=== PATIENT | female | born 1950 | race Caucasian/White ===

== ENCOUNTER 2018-07-14 06:21 | Inpatient (IN) | payer MEDICARE, OTHER ==
[2018-07-14] MEDS: LACTATED RINGER'S 1,000 ML IV* (06:00)
[2018-07-14] MEDS: SOD CHLORIDE 0.9% 1,000 ML IV ×3 (07:18→19:48)
[2018-07-14] MEDS ORDERED: BISACODYL 10 MG SUPP PR (07:30)
[2018-07-14] MEDS ORDERED: MAGNESIUM HYDROXIDE 30ML CUP PO (07:30)
[2018-07-14] MEDS ORDERED: BETHANECHOL 25 MG TAB PO (07:30)
[2018-07-14] MEDS ORDERED: NA PHOSPHATE/BIPHOS 133 ML ENEMA PR (07:30)
[2018-07-14] MEDS ORDERED: oxyCODONE 5 MG TAB PO (07:30)
[2018-07-14] MEDS ORDERED: NACL 0.9% 3 ML SYG IV (07:30)
[2018-07-14] MEDS ORDERED: SENNA/DOCUSATE NA (8.6MG/50MG) TAB PO (07:30)
[2018-07-14] MEDS ORDERED: FENTAnyl 50 MCG/ML VIAL (08:15)
[2018-07-14] MEDS: TRANEXAMIC ACID 1,000 MG in NS 100 ML PRE-OP X1 IVPB (08:15)
[2018-07-14] MEDS ORDERED: ETOMIDATE 20 MG INJ (08:15)
[2018-07-14] MEDS ORDERED: LIDOCAINE 2% (SDV) 5 ML INJ (08:15)
[2018-07-14] MEDS ORDERED: MIDAZOLAM 1 MG/ML 2 ML INJ (08:18)
[2018-07-14] MEDS: CEFAZOLIN 2 GM/50 ML (PMX) 50 ML IVPB (08:30)
[2018-07-14] MEDS ORDERED: hydrALAzine 20 MG INJ (08:35)
[2018-07-14] MEDS ORDERED: CEFAZOLIN 1 GM INJ (08:36)
[2018-07-14] MEDS ORDERED: DEXAMETHASONE 4 MG/ML 1 ML INJ (08:38)
[2018-07-14] MEDS ORDERED: ONDANSETRON 4 MG INJ (08:38)
[2018-07-14] MEDS ORDERED: PHENYLephrine (100 MCG/ML) 5ML SYG ×3 (08:42→10:17)
[2018-07-14] MEDS ORDERED: METOPROLOL 5 MG INJ (08:58)
[2018-07-14] MEDS: BACITRACIN 50000 UNITS INJ (09:03)
[2018-07-14] MEDS: POLYMYXIN B 500000 UNIT INJ (09:03)
[2018-07-14] MEDS: TRANEXAMIC ACID 1,000 MG in NS 100 ML INTRA-OP X1 IVPB (10:00)
[2018-07-14] MEDS ORDERED: EPHEDrine SULFATE 50 MG/5 ML SYG (10:12)
[2018-07-14] MEDS ORDERED: LABETALOL HCL 20MG INJ IV (10:30)
[2018-07-14] MEDS ORDERED: HYDROmorphONE 1 MG/5 ML IV SYRINGE IV (10:30)
[2018-07-14] MEDS ORDERED: hydrALAzine 20 MG INJ IV (10:30)
[2018-07-14] MEDS: EPHEDrine SULFATE 50 MG/5 ML SYG IV (10:41)
[2018-07-14] MEDS: ASPIRIN (EC) 325 MG TAB PO (10:42)
[2018-07-14] MEDS: CEFAZOLIN 1 GM/50 ML (PMX) 50 ML IVPB ×2 (10:42→16:02)
[2018-07-14] MEDS: DOCUSATE SODIUM 100 MG CAP PO (10:43)
[2018-07-14] MEDS: ONDANSETRON 4 MG INJ IV ×4 (10:43→22:37)
[2018-07-14] MEDS: HYDROmorphONE 1 MG/5 ML IV SYRINGE IV ×2 (10:57→11:37)
[2018-07-14] MEDS: NALOXONE (0.4 MG/ML) INJ IV (11:31)
[2018-07-14] MEDS: DIPHENHYDRAMINE 50 MG INJ IV (11:44)
[2018-07-14] MEDS: GABAPENTIN 100 MG CAP PO ×3 (13:00→21:18)
[2018-07-14] MEDS: oxyCODONE 5 MG TAB PO (19:41)
[2018-07-15] MEDS: CEFAZOLIN 1 GM/50 ML (PMX) 50 ML IVPB (00:40)
[2018-07-15] MEDS: oxyCODONE 5 MG TAB PO ×3 (00:41→14:26)
[2018-07-15] MEDS: ONDANSETRON 4 MG INJ IV (01:30)
[2018-07-15 05:03] LABS: ADD MAN DIFF? NO
[2018-07-15 05:06] LABS: WHITE BLOOD COUNT 16.6 10^3/ul (4.8-10.8)
[2018-07-15 05:06] LABS: ABNORMAL IP MESSAGE 1; BASOPHILS % 0.2 % (0.0-2.0); HEMATOCRIT 29.7 % (37.0-47.0); HEMOGLOBIN 9.6 g/dl (12.0-16.0); LYMPHOCYTES # 1.8 10^3/ul (0.8-2.9); LYMPHOCYTES % 10.7 % (15.0-51.0); MEAN CORPUSCULAR HEMOGLOBIN 31.6 pg (29.0-33.0); MEAN CORPUSCULAR HGB CONC 32.3 g/dl (32.0-37.0); MEAN CORPUSCULAR VOLUME 97.7 fl (82.0-101.0); MONOCYTE # 1.6 10^3/ul (0.3-0.9); MONOCYTES % 9.6 % (0.0-11.0); NEUTROPHIL # 13.1 10^3/ul (1.6-7.5); PLATELET COUNT 290 10^3/UL (140-415); RED BLOOD COUNT 3.04 10^6/ul (4.20-5.40); RED CELL DISTRIBUTION WIDTH 15.1 % (11.5-14.5)
[2018-07-15 05:08] LABS: POSITIVE DIFF @See below
[2018-07-15 05:44] LABS: ANION GAP 12 (5-13); BLOOD UREA NITROGEN 19 mg/dl (7-20); CARBON DIOXIDE 22 mmol/L (21-31); CHLORIDE 103 mmol/L (97-110); CREATININE 1.19 mg/dl (0.44-1.00); Estimated GFR 45 mL/min (>60); GLUCOSE 103 mg/dl (70-220); POTASSIUM 4.8 mmol/L (3.5-5.1); SODIUM 137 mmol/L (135-144)
[2018-07-15] MEDS: PANTOPRAZOLE (EC) 40 MG TAB PO (06:35)
[2018-07-15] MEDS: SOD CHLORIDE 0.9% 1,000 ML IV (08:18)
[2018-07-15] MEDS: DOCUSATE SODIUM 100 MG CAP PO (09:00)
[2018-07-15] MEDS: ASPIRIN (EC) 325 MG TAB PO (09:10)
[2018-07-15] MEDS: CELECOXIB 200 MG CAP PO (09:10)
[2018-07-15] MEDS: FERROUS FUMARATE (SR) TAB PO (09:10)
[2018-07-15] MEDS: GABAPENTIN 100 MG CAP PO ×2 (09:10→13:00)
== END 2018-07-15 15:45 | disposition home health service (06) | DRG 470 ==
LOC: REC 06:21 → MS1 11:24
PROC: 0SRB04Z Replacement of Left Hip Joint with Ceramic on Polyethylene Synthetic Substitute, Open Approach (ICD-10-PCS; principal; 2018-07-14 08:00)
DX: M16.12 Unilateral primary osteoarthritis, left hip (principal)
CPT/HCPCS: 73530; 80048; 85025; 86850; 86900; 86901; 87081; 88304; 88311; 90686; 97116; 97162; 97166; 97530